=== PATIENT | male | born 1985 | race Caucasian/White ===

== ENCOUNTER → 2018-04-29 | Outpatient (CLI) | payer OTHER ==
[~2018-04-29] MED LIST: Apriso0.375 GM PO; CEPH500 PO; MESA250ER PO
[2018-04-29 14:25] LABS: Influenza A Negative (NEGATIVE); Influenza B Negative (NEGATIVE)
== END ==
LOC: LAB 13:49 → LAB SHORT 13:49
PROVIDERS: Nurse Practitioner Family
DX: R50.9 Fever, unspecified (principal)
CPT/HCPCS: 87804